=== PATIENT | male | born 1960 | race Caucasian/White ===

== ENCOUNTER 2020-12-09 10:45 | Emergency (ER) | payer OTHER ==
[~2020-12-09] VITALS: Ht 175.3 cm; Wt 96.6 kg
--- NOTE | ~2020-12-09 | EMS ---
[address] [address] EMS Patient Care Report Name: LEE COSME [id number] Admission: 12/09/20 Attend Phys: Discharge: Date of : 56 Report #: [id number] THIS REPORT FOR: //name// Report Transmitted: 12/09/2020 10:16 EMS Care Summary [place], [place]/[facility] Incident [phone] @ 12/09/2020 10:13 Incident Location [id number] [place] [address] Patient LEE COSME Male, 59 Years 1960 Patient Address [id number] [place] [address] Patient History Hypertension (HTN),Back Pain (Chronic), Patient Allergies No known allergies, Patient Medications Lisinopril, Gabapentin, Chief Complaint BACK PAIN Disposition Transported No Lights/[place] Dispatch Reason Back Pain (Non-Traumatic) Transported To [facility] Narrative 28 ARRIVES TO FIND 59 Y/O M PT COMPLAINING OF NONTRAUMATIC LOW BACK PAIN X 8 DAYS. ASSESSMENTS AND TREATMENTS NOTED. PT AMBULATORY AND WALKS TO COT. PT MOVED TO AMBULANCE. PT TRANSPORTED. [address] [address] EMS Patient Care Report Name: LEE COSME Room #: REG ASHLEY Naranjo#: [id number] Admission: 12/09/20 Attend Phys: Discharge: Date of : 56 Report #: [id number] ARRIVES AT DESTINATION. PT MOVED TO ROOM IN ED. PT AMBULATORY AND WALKS TO BED IN ROOM. PT CARE TRANSFERRED. M528 RETURNS TO SERVICE. Initial Vitals @10:36P: 96,BP: 139/83,CO: 5,SpO2: 96, @10:30P: 102,R: 18,BP: 144/87,Pain: 9/10,GCS: 15,SpO2: 96,Revised Trauma: 12, Assessments @10:33MENTAL:No Abnormalities,SKIN:No Abnormalities,HEENT:Head/Face: No Abnormalities,Eyes: No Abnormalities,Neck/Airway: No Abnormalities,LUNG SOUNDS:General: No Abnormalities,Left Upper: No Abnormalities,Right Upper: No Abnormalities,Left Lower: No Abnormalities,Right Lower: No Abnormalities,ABDOMEN:General: No Abnormalities,Left Upper: No Abnormalities,Right Upper: No Abnormalities,Left Lower: No Abnormalities,Right Lower: No Abnormalities,PELVIS//GI:No Abnormalities,EXTREMITIES:Left Arm: No Abnormalities,Right Arm: No Abnormalities,Left Leg: No Abnormalities,Right Leg: No Abnormalities,PULSE:NEURO:No Abnormalities,@10:33MENTAL:No Abnormalities,SKIN:No Abnormalities,HEENT:Head/Face: No Abnormalities,Eyes: No Abnormalities,Neck/Airway: No Abnormalities,LUNG SOUNDS:General: No Abnormalities,Left Upper: No Abnormalities,Right Upper: No Abnormalities,Left Lower: No Abnormalities,Right Lower: No Abnormalities,ABDOMEN:General: No Abnormalities,Left Upper: No Abnormalities,Right Upper: No Abnormalities,Left Lower: No Abnormalities,Right Lower: No Abnormalities,PELVIS//GI:No Abnormalities,EXTREMITIES:Left Arm: No Abnormalities,Right Arm: No Abnormalities,Left Leg: No Abnormalities,Right Leg: No Abnormalities,PULSE:NEURO:No Abnormalities, Impression Back Pain Procedures @10:33ALS AssessmentResponse: UnchangedSucceeded Timeline 10:10,Call Received 10:10,Dispatch Notified 10:13,Dispatched 10:15,En Route 10:24,On Scene 10:25,At Patient 10:30,BP: 144/87 M,PULSE: 102,RR: 18 R,SPO2: 96 Ox,ETCO2: ,BG: ,PAIN: 9,GCS: 15, 10:33,ALS Assessment,Response: UnchangedSucceeded, 10:33,Depart Scene 10:36,BP: 139/83 M,PULSE: 96,RR: R,SPO2: 96 Ox,ETCO2: ,BG: ,PAIN: ,GCS: , 10:41,At Destination [address] [address] EMS Patient Care Report Name: LEE COSME Room #: REG ASHLEY ThayerR.#: [id number] Admission: 12/09/20 Attend Phys: Discharge: Date of : 56 Report #: [id number] 10:50,Call Closed Disclaimer [email or web address] Copyright 2020 [employer] This EMS Care Summary contains data elements from the applicable legal record (which may be displayed differently). It is designed to provide pertinent information for the following purposes: continuity of care, clinical quality, and state data reporting. The complete legal record is available to ED staff and administrators of the receiving hospital in [facility]'s Patient Tracker. All data is provided "as is."
[2020-12-09] MEDS ORDERED: LISINOPRIL20 MG PO (10:55)
[2020-12-09] MEDS ORDERED: NEURONTIN 400M400 M2 PO (10:55)
[2020-12-09] MEDS ORDERED: PROAIR HFA8.5 GM INH (10:55)
[2020-12-09] MEDS ORDERED: NORCO5 PO (11:38)
[2020-12-09] MEDS ORDERED: MEDROLDOSEPACK PO (11:38)
[2020-12-09 11:57] VITALS: BP 139/90
== END 2020-12-09 11:58 | disposition home or self-care (01) ==
LOC: ER 10:45
DX: M54.5 Low back pain (principal); G89.29 Other chronic pain; F17.210 Nicotine dependence, cigarettes, uncomplicated; Z98.890 Other specified postprocedural states; Z79.899 Other long term (current) drug therapy

== ENCOUNTER 2020-12-21 15:00 | Emergency (ER) | payer OTHER ==
[~2020-12-21] VITALS: Ht 175.3 cm; Wt 96.6 kg
[~2020-12-21 15:00] MED LIST: LISINOPRIL20 MG PO; MEDROLDOSEPACK PO; NEURONTIN 400M400 M2 PO; NORCO5 PO; PROAIR HFA8.5 GM INH
[2020-12-21] MEDS ORDERED: DIAZEPAM 5 MG5 M1 PO (15:42)
[2020-12-21] MEDS ORDERED: SOMA350 MG PO (15:43)
[2020-12-21] MEDS ORDERED: PERCOCET 10-321 EAC1 PO (16:54)
[2020-12-21 17:05] VITALS: BP 119/73
[2020-12-21] MEDS ORDERED: NORCO5 PO (17:33)
[2020-12-21] MEDS ORDERED: PERCOCET 5-3251 EACH PO (17:42)
== END 2020-12-21 17:15 | disposition home or self-care (01) ==
LOC: ER 15:00
DX: M54.5 Low back pain (principal); G89.29 Other chronic pain; M25.551 Pain in right hip; Z88.5 Allergy status to narcotic agent

== ENCOUNTER 2021-01-08 11:40 | Emergency (ER) | payer OTHER ==
[~2021-01-08] VITALS: Ht 175.3 cm; Wt 97.5 kg
[~2021-01-08 11:40] MED LIST changes: +DIAZEPAM 5 MG5 M1 PO; +PERCOCET 10-321 EAC1 PO; +PERCOCET 5-3251 EACH PO; +SOMA350 MG PO
[2021-01-08 11:43] VITALS: BP 131/96
[2021-01-08] MEDS ORDERED: KEFLEX250 MG PO (12:42)
[2021-01-08] MEDS ORDERED: PERCOCET 5-3251 EACH PO (14:43)
== END 2021-01-08 13:06 | disposition home or self-care (01) ==
LOC: ER 11:40
DX: S52.515A Nondisplaced fracture of left radial styloid process, initial encounter for closed fracture (principal); S60.512A Abrasion of left hand, initial encounter; S60.511A Abrasion of right hand, initial encounter; I10 Essential (primary) hypertension; G89.29 Other chronic pain; Z98.890 Other specified postprocedural states; Z88.5 Allergy status to narcotic agent; W01.198A Fall on same level from slipping, tripping and stumbling with subsequent striking against other object, initial encounter; Y93.02 Activity, running; Y92.89 Other specified places as the place of occurrence of the external cause; Y99.8 Other external cause status

== ENCOUNTER 2021-01-15 16:25 | Emergency (ER) | payer OTHER ==
[~2021-01-15] VITALS: Ht 175.3 cm; Wt 92.1 kg
[~2021-01-15 16:25] MED LIST changes: +KEFLEX250 MG PO
[2021-01-15] MEDS ORDERED: PERCOCET 5-3251 EACH PO (17:39)
[2021-01-15 18:24] VITALS: BP 143/64
== END 2021-01-15 18:25 | disposition home or self-care (01) ==
LOC: ER 16:25
DX: M25.532 Pain in left wrist (principal); I10 Essential (primary) hypertension; G89.29 Other chronic pain; M54.5 Low back pain; Z79.899 Other long term (current) drug therapy; Z88.6 Allergy status to analgesic agent

== ENCOUNTER 2021-02-02 17:02 | Emergency (ER) | payer OTHER ==
[~2021-02-02] VITALS: Ht 175.3 cm; Wt 90.7 kg
[2021-02-02 17:15] VITALS: BP 116/63
[2021-02-02] MEDS ORDERED: ROXICODONE5 MG PO (17:21)
== END 2021-02-02 18:26 | disposition left against medical advice (07) ==
LOC: ER 17:02
DX: M79.642 Pain in left hand (principal); Z53.21 Procedure and treatment not carried out due to patient leaving prior to being seen by health care provider

== ENCOUNTER 2021-03-02 15:10 | Emergency (ER) | payer OTHER ==
[~2021-03-02] VITALS: Ht 175.3 cm; Wt 92.1 kg
[~2021-03-02 15:10] MED LIST changes: +ROXICODONE5 MG PO
[2021-03-02 15:22] VITALS: BP 127/84
== END 2021-03-02 16:00 | disposition left against medical advice (07) ==
LOC: ER 15:10
DX: M79.641 Pain in right hand (principal); M79.642 Pain in left hand; I10 Essential (primary) hypertension; Z98.890 Other specified postprocedural states; Z79.891 Long term (current) use of opiate analgesic; Z79.51 Long term (current) use of inhaled steroids; Z79.1 Long term (current) use of non-steroidal anti-inflammatories (NSAID); Z79.899 Other long term (current) drug therapy; Z88.6 Allergy status to analgesic agent

== ENCOUNTER 2021-08-12 11:48 | Emergency (ER) | payer OTHER ==
[~2021-08-12] VITALS: Ht 175.3 cm; Wt 97.5 kg
[2021-08-12 14:31] VITALS: BP 123/70
--- NOTE | 2021-08-13 13:51 | EKG ---
[address] [place] [address] ELECTROCARDIOGRAM REPORT Name: CARMELINALEE JD Room #: DEP [facility]#: [id number] Admission: 08/12/21 Attend Phys: Discharge: 08/12/21 Date of : 56 Report #: [id number] [facility] ED Test Date: 2021-08-12 Test Time: 12:03:28 Pat Name: LEE COSME Department: Room: Gender: Miner Operator: : 1960 Requested By: Mary Funk Order Number: [id number] MD: Alf Ortiz Measurements Intervals [place] Rate: 91 P: 76 GA: 176 QRS: 30 QRSD: 94 T: 41 QT: 352 QTc: 434 Interpretive Statements Sinus rhythm RSR' in V1 or V2, right VCD or RVH Baseline wander in lead(s) I,III,aVL No previous ECG available for comparison Electronically Signed On 08-13-2021 13:51:37 GENERATION ENGINE[employer] by Alf Ortiz [email or web address] <ELECTRONICALLY SIGNED> By: Alf Ortiz MD, [facility] 08/13/21 1351 1203 120 Alf Ortiz MD, FACC /EPI
== END 2021-08-12 14:31 | disposition home or self-care (01) ==
LOC: ER 11:48
DX: J02.9 Acute pharyngitis, unspecified (principal); R05.1 Acute cough; R07.89 Other chest pain; Z88.5 Allergy status to narcotic agent; Z20.822 Contact with and (suspected) exposure to COVID-19